=== PATIENT | male | born 1950 | race Caucasian/White ===

== ENCOUNTER → 2016-12-23 | Outpatient (CLI) | payer MEDICARE | END | disposition home or self-care (01) | LOC: CFH 11:14 | PROVIDERS: ATTEND Internal Medicine Cardiovascular Disease | DX: I08.2 Rheumatic disorders of both aortic and tricuspid valves (principal); I37.1 Nonrheumatic pulmonary valve insufficiency; I51.7 Cardiomegaly; I48.91 Unspecified atrial fibrillation; Z95.1 Presence of aortocoronary bypass graft | CPT/HCPCS: 93306 ==

== ENCOUNTER 2019-03-22 10:58 | Outpatient (CLI) | payer MEDICARE ==
[~2019-03-22 10:58] MED LIST: OXYMETAZOLINE NASAL SPRAY 0.05%, 15ML ONE
[2019-03-22] MEDS ORDERED: REGADENOSON 0.4 MG/5 ML SYRINGE ONE (11:53)
== END 2019-03-22 23:59 | disposition home or self-care (01) ==
LOC: CFH 10:58
PROVIDERS: ATTEND Internal Medicine Cardiovascular Disease
DX: I08.8 Other rheumatic multiple valve diseases (principal); I11.9 Hypertensive heart disease without heart failure; J44.9 Chronic obstructive pulmonary disease, unspecified; I25.10 Atherosclerotic heart disease of native coronary artery without angina pectoris; I25.2 Old myocardial infarction; I48.91 Unspecified atrial fibrillation; Z95.1 Presence of aortocoronary bypass graft
CPT/HCPCS: 78452; 93017; 93306; A9502; J2785

== ENCOUNTER 2019-12-13 12:19 | Observation (INO) | payer MEDICARE ==
[~2019-12-13] VITALS: Ht 190.5 cm; Wt 88.0 kg
[2019-12-13] MEDS: SODIUM CHLORIDE 0.9% 1,000 ML IV SCH ×2 (12:38→20:38)
[2019-12-13] MEDS ORDERED: CARV6.2512 PO (12:56)
[2019-12-13] MEDS ORDERED: FINA5TAB4 PO (12:56)
[2019-12-13] MEDS ORDERED: LISI40TA PO (12:56)
[2019-12-13] MEDS ORDERED: ASPI81TA50 PO (12:56)
[2019-12-13] MEDS ORDERED: ATOR40TA PO (12:56)
[2019-12-13] MEDS ORDERED: ALBU18HF INH (12:56)
[2019-12-13 13:08] LABS: BASOPHILS # (AUTO) 0.02 x10^3/uL (0-0.1); BASOPHILS % (AUTO) 1 % (0-1); EOSINOPHILS % (AUTO) 4 % (1-7); LYMPHOCYTES # (AUTO) 1.25 x10^3/uL (1-3.4); LYMPHOCYTES % (AUTO) 26 % (22-44); MD NO; MEAN CORPUSCULAR HEMOGLOBIN 30.5 pg (27.5-34.5); MEAN CORPUSCULAR HGB CONC 33.6 g/dL (33.2-36.2); MEAN CORPUSCULAR VOLUME 90.9 fL (81-97); MEAN PLATELET VOLUME 8.9 fL (7.4-10.4); MONOCYTES % (AUTO) 11 % (2-9); NEUTROPHILS # (AUTO) 2.82 x10^3/uL (1.8-6.8); NEUTROPHILS % (AUTO) 59 % (42-75); PLATELET COUNT 181 x10^3/uL (130-400); RED CELL DISTRIBUTION WIDTH 13.1 % (9.4-14.8)
[2019-12-13 13:18] LABS: ALANINE AMINOTRANSFERASE 29 U/L (12-78); ALBUMIN 3.9 g/dL (3.4-5.0); ANION GAP 6 mmol/L (5-15); CALCIUM 8.9 mg/dL (8.5-10.1); CHLORIDE 110 mmol/L (98-107); CHOLESTEROL, TOTAL 123 mg/dL (140-239); CREATININE 0.87 mg/dL (0.7-1.3)
[2019-12-13 13:20] LABS: ALKALINE PHOSPHATASE 84 U/L (45-117); BILIRUBIN,TOTAL 1.3 mg/dL (0.2-1.0); CHOL/HDL RATIO 3.2; HDL CHOL % 32 % (26-37); HDL CHOLESTEROL (DIRECT) 39 mg/dL (40-60); LDL CHOLESTEROL,CALCULATED 60 mg/dL (54-169); LDL/HDL RATIO 1.5 (0.5-3.0); TOTAL PROTEIN 7.5 g/dL (6.4-8.2); TRIGLYCERIDES 118 mg/dL (50-200); VLDL CHOLESTEROL 24 mg/dL (0-25)
[2019-12-13] MEDS ORDERED: CEFAZOLIN PMX 1GM/50ML 50 ML ONE (13:26)
[2019-12-13] MEDS ORDERED: CEFAZOLIN 1,000 MG ONE (13:26)
[2019-12-13] MEDS ORDERED: FENTANYL PF 100 MCG/2ML ONE (13:26)
[2019-12-13] MEDS ORDERED: LIDOCAINE 1%, 20ML ONE (13:26)
[2019-12-13] MEDS ORDERED: MIDAZOLAM 1 MG/ML, 2ML ONE ×2 (13:26→14:23)
[2019-12-13] MEDS ORDERED: ZOLPIDEM 5MG TABLET PO PRN (15:00)
[2019-12-13] MEDS ORDERED: HYDROcodone/APAP 5/325 TABLET PO PRN (15:00)
[2019-12-13] MEDS ORDERED: ONDANSETRON 2MG/ML, 2ML IV PRN (15:00)
[2019-12-13] MEDS ORDERED: HOLD MEDICATION MC PRN (15:00)
[2019-12-13 19:16] VITALS: BP 132/88
[2019-12-13] MEDS: SODIUM CHLORIDE FLUSH 10ML SYR IVF SCH (21:00)
[2019-12-13] MEDS ORDERED: ATORVASTATIN 40 MG TABLET PO SCH (21:00)
[2019-12-13] MEDS: CARVEDILOL 6.25 MG TABLET PO SCH (21:05)
[2019-12-13] MEDS: CEFAZOLIN PMX 1GM/50ML 50 ML IVPB SCH (21:07)
[2019-12-14 01:03] VITALS: BP 143/93
[2019-12-14] MEDS: SODIUM CHLORIDE 0.9% 1,000 ML IV SCH ×2 (04:38→12:04)
[2019-12-14] MEDS: CEFAZOLIN PMX 1GM/50ML 50 ML IVPB SCH (06:01)
[2019-12-14] MEDS: SODIUM CHLORIDE FLUSH 10ML SYR IVF SCH (08:43)
[2019-12-14] MEDS: CARVEDILOL 6.25 MG TABLET PO SCH (08:43)
[2019-12-14 08:46] VITALS: BP 132/84
[2019-12-14] MEDS ORDERED: LISINOPRIL 40 MG TABLET PO SCH (09:00)
[2019-12-14] MEDS ORDERED: ASPIRIN 81 MG TABLET EC PO SCH (09:00)
[2019-12-14] MEDS ORDERED: FINASTERIDE 5 MG TABLET PO SCH (09:00)
[2019-12-14] MEDS ORDERED: ACETAMINOPHEN 325 MG TABLET PO PRN (09:30)
== END 2019-12-14 15:38 | disposition home or self-care (01) ==
LOC: CACL 12:19 → 5SO 14:41 → CACL 14:53
PROVIDERS: ADMIT Internal Medicine Cardiovascular Disease; ATTEND Internal Medicine Cardiovascular Disease
DX: I49.5 Sick sinus syndrome (principal); I44.1 Atrioventricular block, second degree; I48.0 Paroxysmal atrial fibrillation; I48.92 Unspecified atrial flutter; I25.10 Atherosclerotic heart disease of native coronary artery without angina pectoris; I42.9 Cardiomyopathy, unspecified; I34.0 Nonrheumatic mitral (valve) insufficiency; R42 Dizziness and giddiness; I25.2 Old myocardial infarction; E78.00 Pure hypercholesterolemia, unspecified; Z95.1 Presence of aortocoronary bypass graft; Z79.82 Long term (current) use of aspirin
CPT/HCPCS: 33208; 36415; 71045; 80053; 80061; 85025; 93005; 96365; 96366; 99156; 99157; C1779; C1785; C1892; G0378; J0690; J2250; J3010; J3490

== ENCOUNTER 2020-01-03 07:25 | Day surgery (SDC) | payer MEDICARE ==
[~2020-01-03] VITALS: Ht 182.9 cm; Wt 90.0 kg
[~2020-01-03 07:25] MED LIST changes: +ALBU18HF INH; +ASPI81TA50 PO; +ATOR40TA PO; +CARV6.2512 PO; +CETI10TA26 PO; +FINA5TAB4 PO; +LISI40TA PO; -OXYMETAZOLINE NASAL SPRAY 0.05%, 15ML ONE
[2020-01-03] MEDS ORDERED: LACTATED RINGERS 1,000 ML IV SCH (07:45)
[2020-01-03 07:50] VITALS: BP 142/96
[2020-01-03] MEDS ORDERED: LIDOCAINE-MPF 1%, 2ML INFIL ONE (08:00)
[2020-01-03] MEDS ORDERED: CHLORHEXIDINE 15 ML UDC MM ONE (08:00)
[2020-01-03] MEDS ORDERED: FENTANYL PF 100 MCG/2ML ONE ×2 (08:28→11:15)
[2020-01-03] MEDS ORDERED: MIDAZOLAM 1 MG/ML, 2ML ONE (08:28)
[2020-01-03] MEDS ORDERED: BUPIVACAINE/PF 0.5% ONE (08:56)
[2020-01-03] MEDS ORDERED: LIDOCAINE 1%, 20ML ONE (08:56)
[2020-01-03] MEDS ORDERED: LABETALOL 5MG/ML, 20ML IV PRN (10:00)
[2020-01-03] MEDS ORDERED: ALBUTEROL SULFATE 2.5 MG/3 ML NPPB PRN (10:00)
[2020-01-03] MEDS ORDERED: MIDAZOLAM 1 MG/ML, 2ML IV PRN (10:00)
[2020-01-03] MEDS ORDERED: HYDROmorphone 1 MG/ML, 1ML INJ IVPush PRN (10:00)
[2020-01-03] MEDS ORDERED: ACETAMINOPHEN 325 MG TABLET PO PRN (10:00)
[2020-01-03] MEDS ORDERED: hydrALAzine 20 MG/ML, 1ML IV PRN (10:00)
[2020-01-03] MEDS ORDERED: PROMETHAZINE 25 MG/ML, 1ML IVPush PRN (10:00)
[2020-01-03] MEDS ORDERED: OXYcodone 5 MG/5 ML ORAL.SOL UDC PO PRN (10:00)
[2020-01-03] MEDS ORDERED: ONDANSETRON 2MG/ML, 2ML ONE (10:43)
[2020-01-03] MEDS ORDERED: DEXAMETHASONE 4 MG/ML, 1ML ONE (10:43)
[2020-01-03] MEDS ORDERED: PROPOFOL 10 MG/ML, 20ML ONE (10:43)
[2020-01-03] MEDS ORDERED: CEFAZOLIN 1,000 MG ONE (10:43)
[2020-01-03] MEDS ORDERED: OXYcodone 5 MG/5 ML ORAL.SOL UDC ONE (11:15)
[2020-01-03] MEDS: FENTANYL PF 100 MCG/2ML IV PRN ×2 (11:20→11:33)
== END 2020-01-03 13:55 | disposition home or self-care (01) ==
LOC: OUT 07:25 → EDSTATUS 10:30 → OUT 13:55
PROVIDERS: ATTEND Orthopaedic Surgery
DX: S86.011A Strain of right Achilles tendon, initial encounter (principal); I10 Essential (primary) hypertension; I25.10 Atherosclerotic heart disease of native coronary artery without angina pectoris; J44.9 Chronic obstructive pulmonary disease, unspecified; E78.5 Hyperlipidemia, unspecified; M10.9 Gout, unspecified; N40.0 Benign prostatic hyperplasia without lower urinary tract symptoms; Z79.82 Long term (current) use of aspirin; Z79.899 Other long term (current) drug therapy; Z95.0 Presence of cardiac pacemaker; Z95.1 Presence of aortocoronary bypass graft; X50.9XXA Other and unspecified overexertion or strenuous movements or postures, initial encounter; Y93.89 Activity, other specified; Y92.89 Other specified places as the place of occurrence of the external cause; Y99.8 Other external cause status
CPT/HCPCS: 27650; J0690; J1100; J2250; J2405; J2704; J3010; J7120; U0001

== ENCOUNTER → 2020-12-10 | Outpatient (CLI) | payer MEDICARE ==
[~2020-12-10] MED LIST changes: -CETI10TA26 PO; +CETI10TA76 PO; -LISI40TA PO; +LISI40TA9 PO; +REGADENOSON 0.4 MG/5 ML SYRINGE ONE
== END | disposition home or self-care (01) ==
LOC: CFH 08:59
PROVIDERS: ATTEND Internal Medicine Cardiovascular Disease
DX: I10 Essential (primary) hypertension (principal); I48.0 Paroxysmal atrial fibrillation; I25.10 Atherosclerotic heart disease of native coronary artery without angina pectoris; I42.9 Cardiomyopathy, unspecified
CPT/HCPCS: 78452; 93017; A9502; J2785

== ENCOUNTER → 2020-12-20 | Outpatient (CLI) | payer MEDICARE ==
[~2020-12-20] MED LIST changes: -REGADENOSON 0.4 MG/5 ML SYRINGE ONE
== END | disposition home or self-care (01) ==
LOC: CVU 14:09
PROVIDERS: ATTEND Internal Medicine Cardiovascular Disease
DX: I08.8 Other rheumatic multiple valve diseases (principal); I25.10 Atherosclerotic heart disease of native coronary artery without angina pectoris; I42.9 Cardiomyopathy, unspecified; I11.9 Hypertensive heart disease without heart failure; I48.0 Paroxysmal atrial fibrillation
CPT/HCPCS: 93306